=== PATIENT | female | born 1990 | race Caucasian/White ===

== ENCOUNTER 2017-12-06 08:48 | Emergency (ER) | payer OTHER ==
[2017-12-06 08:57] VITALS: BP 126/60
[2017-12-06] MEDS ORDERED: ACETAMINOPHEN 325 MG TABLET PO ONE (09:52)
[2017-12-06] MEDS ORDERED: IBUPROFEN 400 MG TABLET PO ONE (09:52)
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
== END 2017-12-06 13:00 | disposition home or self-care (01) ==
LOC: ER 08:48
DX: O9A.219 Injury, poisoning and certain other consequences of external causes complicating pregnancy, unspecified trimester (principal); S16.1XXA Strain of muscle, fascia and tendon at neck level, initial encounter; V43.52XA Car driver injured in collision with other type car in traffic accident, initial encounter; Z3A.00 Weeks of gestation of pregnancy not specified
CPT/HCPCS: 99283; 72050; J3490